=== PATIENT | male | born 1965 | race Caucasian/White ===

== ENCOUNTER → 2017-01-25 | Outpatient (CLI) | payer BC ==
[~2017-01-25] MED LIST: HYDROCODON-ACE1 EAC9 PO; TYLOX 5/500 CAP1 CAP PO; VICODIN 5/500 T1 TAB PO
== END | disposition home or self-care (01) ==
LOC: CLAB 12:26
DX: C61 Malignant neoplasm of prostate (principal)
CPT/HCPCS: 36415; 84153